=== PATIENT | female | born 1955 | race Caucasian/White ===

== ENCOUNTER 2022-04-13 02:31 | Inpatient (IN) | payer OTHER ==
[~2022-04-13] VITALS: Ht 160 cm; Wt 77.1 kg
[2022-04-13 03:04] VITALS: BP_SYST 171
[2022-04-13] MEDS ORDERED: MORPHINE 4 MG INJ. 4 MG/ML VIAL IVP ONE (05:00)
[2022-04-13] MEDS ORDERED: PROCHLORPERAZINE EDISYLATE 10 MG/2 ML VIAL IVP ONE (05:00)
--- NOTE | 2022-04-13 05:00 | NUR ---
pt BIB BLS from home c/o mechanical fall, right sided hip pain. Denies CP, SOB, No LOC, No head trauma
--- NOTE | 2022-04-13 05:30 | NUR ---
at bedside for MSE
--- NOTE | 2022-04-13 05:41 | NUR ---
# 20 gauge angiocath placed to LAC. Use of asceptic technique. Opsite placed over site. Blood return noted. Blood for lab drawn from site. Flushed with 10 cc of normal saline. No evidence of infiltration noted. Patient tolerated well.
[2022-04-13] MEDS ORDERED: ONDANSETRON HCL 4 MG/2 ML VIAL IVP PRN (06:30)
[2022-04-13] MEDS ORDERED: MUPIROCIN 2% TOPICAL OINTMENT 22 GM NS PRN (06:30)
[2022-04-13] MEDS ORDERED: MAGNESIUM SULFATE 50 ML IV PRN (06:30)
[2022-04-13] MEDS ORDERED: POTASSIUM CHLORIDE 20 MEQ TAB.PRT.SR PO PRN (06:30)
[2022-04-13] MEDS ORDERED: DOCUSATE SODIUM 100 MG CAPSULE PO PRN (06:30)
[2022-04-13] MEDS ORDERED: ACETAMINOPHEN 325 MG TABLET PO PRN (06:30)
[2022-04-13 06:42] LABS: BASOPHILS % (AUTO) 0.2 % (0.0-2.0); HEMATOCRIT 43.8 % (36-48); HEMOGLOBIN 14.5 g/dL (12.0-16.0); LYMPHOCYTES # (AUTO) 0.7 K/uL (1.0-5.5); LYMPHOCYTES % (AUTO) 4.1 % (20.5-51.5); MEAN CORPUSCULAR HEMOGLOBIN 31 pg (27-31); MEAN CORPUSCULAR HGB CONC 33 % (32-36); MEAN CORPUSCULAR VOLUME 93 fL (79.0-98.0); MONOCYTES % (AUTO) 5.8 % (1.7-9.3); NEUTROPHILS # (AUTO) 15.4 K/uL (1.8-7.7); NEUTROPHILS % (AUTO) 89.9 % (40.0-70.0); PLATELET COUNT (AUTO) 232 K/uL (130-430); RED BLOOD CELL COUNT(AUTO) 4.73 MIL/uL (4.2-6.2); RED CELL DISTRIBUTION WIDTH 14.3 % (9.0-15.0); WHITE BLOOD COUNT (AUTO) 17.1 K/uL (4.8-10.8)
[2022-04-13 07:19] LABS: CREATININE 0.73 mg/dL (0.55-1.30)
--- NOTE | 2022-04-13 07:30 | NUR ---
ASSUMED PATIENT CARE AAOX4 ON BOTTOM FINISHER, C/O RIGHT SIDED DISCOMFORT, WILL CONTINUE TO MONITOR.
[2022-04-13] MEDS ORDERED: DEXAMETHASONE SOD PHOSPHATE 4 MG/ML VIAL IVP ONE (08:30)
--- NOTE | 2022-04-13 08:57 | NUR ---
SPOKE TO AND REPOSITIONNED PATIENT IN BED.
--- NOTE | 2022-04-13 09:48 | NUR ---
X-RAY IN PROGRESS.
[2022-04-13] MEDS: NACL 0.9% 1,000 ML IV SCH ×2 (10:22→22:24)
[2022-04-13] MEDS: MORPHINE 2 MG/ML INJ. SYRINGE IVP PRN ×4 (10:22→23:55)
--- NOTE | 2022-04-13 11:04 | NUR ---
PURE WECK IN PLACE TO SUCTION, WILL CONTINUE TO MONITOR.
[2022-04-13] MEDS ORDERED: CEFAZOLIN 1 GM IVPB PREMIX 50 ML IV ONE (11:30)
[2022-04-13 12:13] LABS: ANION GAP 15 (5-15); CALCIUM 9.3 mg/dL (8.4-11.0); CHLORIDE 106 mmol/L (98-107); CREATININE 0.79 mg/dL (0.55-1.30); GLUCOSE 134 mg/dL (70-99); UREA NITROGEN, BLOOD 9 mg/dL (8-21)
[2022-04-13 12:17] LABS: ALANINE AMINOTRANSFERASE 32 U/L (12-78); ALBUMIN 3.7 g/dL (3.4-4.8); ASPARTATE AMINOTRANSFERASE 87 U/L (10-37); C-REACTIVE PROTEIN QUANT 3.7 mg/dL (0-0.5); TOTAL BILIRUBIN 0.7 mg/dL (0.0-1.0)
[2022-04-13 12:21] LABS: GFR AFRICAN AMERICAN 93 mL/min (>90)
--- NOTE | 2022-04-13 14:30 | NUR ---
CALL PLACE TO DR MONTGOMERY FOR D-DIMER 5000
--- NOTE | 2022-04-13 14:36 | NUR ---
CALL TO DR MONTGOMERY MADE AWARE OF CONSULT.
--- NOTE | 2022-04-13 14:50 | NUR ---
Nika vidales in [facility] - 04/13/22 at 1503 by SDMTHK NPO UNTIL MIDNIGHT- SURGERY RESCHEDULED
--- NOTE | 2022-04-13 15:00 | NUR ---
PATIENT IS EATING
--- NOTE | 2022-04-13 15:03 | NUR ---
NPO AFTER MIDNIGHT PER OR
--- NOTE | 2022-04-13 15:03 | NUR ---
REPORT GIVEN TO
--- NOTE | 2022-04-13 15:34 | NUR ---
Patient will be admitted to care of DR FRANCO. Admitted to M/S unit. Will go to room 121 A. Belongings list completed. Complete and up to date summary report printed. SBAR report to be given at bedside with opportunity for questions.
--- NOTE | 2022-04-13 15:35 | NUR ---
REPORT GIVEN TO LEONEL SINGH
[2022-04-13 17:10] VITALS: BP_SYST 150
--- NOTE | 2022-04-13 19:15 | NUR ---
OPENING NOTE REPORT RECEIVED FROM DAYSHIFT NURSE. PATIENT RECEIVED LYING IN BED, AWAKE, NO S/S OF ACUTE DISTRESS. BREATHING EVEN AND UNLABORED, HOB RAISED, NASAL CANULA ATTACHED PROPERLY, ON 2L OF OXYGEN. IVF INFUSING WELL, IV SITE PATENT, NO SIGNS OF INFILTRATION OR INFECTION NOTED. CALL LIGHT WITH PATIENT. BED ALARM ON. BED IS LOCKED AND AT LOWEST POSITION. WILL CONTINUE TO MONITOR.
[2022-04-13 20:00] VITALS: BP_SYST 148
[2022-04-13] MEDS: CEFAZOLIN 1 GM IVPB PREMIX 50 ML IV SCH (22:25)
--- NOTE | 2022-04-13 23:00 | NUR ---
ROUND PATIENT IN BED, RESTING. NO SIGNS OF DISCOMFORT. CHEST RISE AND FALL EVEN BILATERALLY. ALL NEEDS MET. WILL MONITOR.
[2022-04-14 00:41] VITALS: BP_SYST 163
--- NOTE | 2022-04-14 04:40 | NUR ---
CALLED MD/RETENTION PATIENT HAS YET TO VOID THROUGHOUT SHIFT. BLADDER SCAN DONE, >800ML DETECTED. MD MADE AWARE. ORDERS GIVEN. WILL CARRY OUT.
[2022-04-14] MEDS: MORPHINE 2 MG/ML INJ. SYRINGE IVP PRN (04:48)
[2022-04-14] MEDS: CEFAZOLIN 1 GM IVPB PREMIX 50 ML IV SCH (05:36)
[2022-04-14 06:39] LABS: BASOPHILS % (AUTO) 0.1 % (0.0-2.0); HEMATOCRIT 40.5 % (36-48); HEMOGLOBIN 13.8 g/dL (12.0-16.0); LYMPHOCYTES # (AUTO) 1.3 K/uL (1.0-5.5); LYMPHOCYTES % (AUTO) 7.6 % (20.5-51.5); MEAN CORPUSCULAR HEMOGLOBIN 31 pg (27-31); MEAN CORPUSCULAR HGB CONC 34 % (32-36); MEAN CORPUSCULAR VOLUME 92 fL (79.0-98.0); MONOCYTES # (AUTO) 1.5 K/uL (0.0-1.0); MONOCYTES % (AUTO) 8.8 % (1.7-9.3); NEUTROPHILS # (AUTO) 13.8 K/uL (1.8-7.7); NEUTROPHILS % (AUTO) 83.5 % (40.0-70.0); PLATELET COUNT (AUTO) 234 K/uL (130-430); RED BLOOD CELL COUNT(AUTO) 4.39 MIL/uL (4.2-6.2); RED CELL DISTRIBUTION WIDTH 14.2 % (9.0-15.0); WHITE BLOOD COUNT (AUTO) 16.5 K/uL (4.8-10.8)
--- NOTE | 2022-04-14 06:41 | NUR ---
CLOSING NOTE PATIENT IN BED RESTING. NO S/S OF ACUTE DISTRESS. BREATHING EVEN AND UNLABORED. HOB RAISED. NASAL CANULA ATTACHED PROPERLY. IVF INFUSING WELL. IV SITE PATENT, NO SIGNS OF INFILTRATION OR INFECTION NOTED. MARTINEZ ATTACHED, SECURED, AND DRAINING BY GRAVITY. ALL NEEDS MET THROUGHOUT SHIFT. FALL, SAFETY PRECAUTIONS MAINTAINED THROUGHOUT SHIFT. WILL CONTINUE TO MONITOR UNTIL PATIENT CARE IS ENDORSED TO ONCOMING DAYSHIFT NURSE.
[2022-04-14 07:41] LABS: CALCIUM 8.6 mg/dL (8.4-11.0); CREATININE 0.58 mg/dL (0.55-1.30)
[2022-04-14 07:53] VITALS: BP_SYST 160
[2022-04-14 08:14] LABS: BILIRUBIN,URINE NEGATIVE (NEGATIVE); BLOOD, URINE NEGATIVE (NEGATIVE); CLARITY/URINE CLEAR (CLEAR); COLOR,URINE YELLOW (YELLOW); GLUCOSE,URINE NEGATIVE (NEGATIVE); KETONES,URINE 1+ (NEGATIVE); LEUKOCYTE ESTERASE ,URINE NEGATIVE (NEGATIVE); NITRITE, URINE NEGATIVE (NEGATIVE); PROTEIN URINE 1+ (NEGATIVE); UROBILINOGEN,URINE 0.2 (0.2-1.0)
--- NOTE | 2022-04-14 08:59 | NUR ---
Patint AAox4, no acute distress noted. Patient leftto surgery at this time.
[2022-04-14 09:26] LABS: BACTERIA,URINE RARE /HPF (None Seen); MUCUS,URINE 1+ /LPF (None Seen); WBC,URINE 0-3 /HPF (0-3)
[2022-04-14] MEDS ORDERED: METOCLOPRAMIDE HCL 10 MG/2 ML VIAL IVP PRN ×2 (09:45→11:15)
[2022-04-14] MEDS ORDERED: ONDANSETRON HCL 4 MG/2 ML VIAL IVP PRN ×2 (09:45→11:45)
[2022-04-14] MEDS ORDERED: fentaNYL CITRATE/PF 100 MCG/2 ML AMP IVP PRN ×2 (09:45)
[2022-04-14] MEDS ORDERED: LORATADINE 10 MG TABLET PO PRN (11:00)
[2022-04-14] MEDS ORDERED: traMADol HCL HCL 50 MG TABLET (ULTRAM) PO PRN (11:00)
[2022-04-14] MEDS ORDERED: oxyCODONE HCL 5 MG TABLET PO PRN (11:00)
[2022-04-14] MEDS ORDERED: HYDROmorphone 1 MG/ML INJ. CARTRIDGE IVP PRN ×2 (11:00)
[2022-04-14] MEDS ORDERED: NALOXONE HCL 0.4 MG/ML AMP (NARCAN) IVP PRN ×3 (11:15)
[2022-04-14] MEDS ORDERED: BISACODYL 10 MG/SUPPOSITORY RC PRN (11:15)
[2022-04-14] MEDS ORDERED: KETOROLAC TROMETHAMINE 10 MG TABLET (TORADOL) PO SCH (14:00)
--- NOTE | 2022-04-14 14:01 | NUR ---
several attrempts to reach family member regarding patient medications, phone rang andno one picked up. Will continue to try to get in touchwith family member. Patient is AAOx4, resting in bed and no acute distress noted at this time.
[2022-04-14] MEDS: HYDROmorphone 1 MG/ML INJ. CARTRIDGE IVP PRN ×2 (14:28→20:20)
[2022-04-14] MEDS: ceFAZolin SODIUM 2 GM in D5W 50 ML IV SCH ×2 (14:57→22:03)
[2022-04-14 16:00] VITALS: BP_SYST 177
[2022-04-14] MEDS ORDERED: LR 1,000 ML IV.SOLN IV ONE (18:50)
[2022-04-14] MEDS ORDERED: NS IRRIG SOLN 1000 ML IR ONE (18:50)
[2022-04-14] MEDS ORDERED: BUPIVACAINE /PF 0.5% 30 ML VIAL INJ ONE (18:50)
[2022-04-14] MEDS ORDERED: PROPOFOL 200MG/ 20ML VIAL (DIPRIVAN) IV ONE (18:50)
[2022-04-14] MEDS ORDERED: NS 1000 ML IV.SOLN IV ONE (18:50)
[2022-04-14] MEDS ORDERED: TRANEXAMIC ACID 1,000 MG/10 ML VIAL IV ONE (18:50)
[2022-04-14 20:00] VITALS: BP_SYST 158
[2022-04-14] MEDS ORDERED: ACETAMINOPHEN 500 MG TABLET ONE (20:13)
[2022-04-14] MEDS: SENNOSIDES/DOCUSATE SODIUM 1 TAB TABLET(SENOKOT-S) PO SCH (20:18)
[2022-04-14] MEDS: ACETAMINOPHEN 500 MG TABLET PO SCH (20:19)
[2022-04-15] VITALS: BP_SYST 147
--- NOTE | 2022-04-15 | NUR ---
ROUNDS PATIENT STABLE, RESTING. WILL MONITOR.
[2022-04-15] MEDS: NACL 0.9% 1,000 ML IV SCH ×3 (01:45→20:37)
[2022-04-15] MEDS: ACETAMINOPHEN 500 MG TABLET PO SCH ×3 (05:56→23:12)
[2022-04-15] MEDS: ceFAZolin SODIUM 2 GM in D5W 50 ML IV SCH (05:56)
[2022-04-15] MEDS: HYDROmorphone 1 MG/ML INJ. CARTRIDGE IVP PRN ×3 (06:27→20:37)
--- NOTE | 2022-04-15 08:36 | NUR ---
Attempted to reach Roger Correia regarding patient's blood pressure. As per Dr. Mata message will be passing across and awaiting for call back to know the next step. Will continue to monitor.
[2022-04-15 08:39] VITALS: BP_SYST 198
[2022-04-15] MEDS: SENNOSIDES/DOCUSATE SODIUM 1 TAB TABLET(SENOKOT-S) PO SCH ×2 (09:00→20:37)
[2022-04-15] MEDS ORDERED: ASPIRIN 81 MG TAB.CHEW PO SCH (09:00)
[2022-04-15 10:00] LABS: CALCIUM 8.7 mg/dL (8.4-11.0); CREATININE 0.7 mg/dL (0.55-1.30)
[2022-04-15 10:59] LABS: BASOPHILS % (AUTO) 0.1 % (0.0-2.0); EOSINOPHILS % (AUTO) 0.2 % (0.0-4.0); HEMATOCRIT 39.6 % (36-48); HEMOGLOBIN 13.2 g/dL (12.0-16.0); LYMPHOCYTES # (AUTO) 1.5 K/uL (1.0-5.5); LYMPHOCYTES % (AUTO) 12.8 % (20.5-51.5); MEAN CORPUSCULAR HEMOGLOBIN 31 pg (27-31); MEAN CORPUSCULAR HGB CONC 33 % (32-36); MONOCYTES # (AUTO) 1.2 K/uL (0.0-1.0); MONOCYTES % (AUTO) 10.6 % (1.7-9.3); NEUTROPHILS % (AUTO) 76.3 % (40.0-70.0); PLATELET COUNT (AUTO) 179 K/uL (130-430); RED BLOOD CELL COUNT(AUTO) 4.22 MIL/uL (4.2-6.2); RED CELL DISTRIBUTION WIDTH 14.4 % (9.0-15.0); WHITE BLOOD COUNT (AUTO) 11.7 K/uL (4.8-10.8)
[2022-04-15] MEDS ORDERED: CELECOXIB 200 MG CAPSULE PO SCH (11:00)
[2022-04-15 11:01] LABS: MEAN CORPUSCULAR VOLUME 94 fL (79.0-98.0)
[2022-04-15] MEDS: ENOXAPARIN SODIUM 40 MG/0.4 ML SYRINGE SUBCUT SCH (11:54)
--- NOTE | 2022-04-15 14:46 | NUR ---
Patient offered med and refused. Med opened and wasted.
--- NOTE | 2022-04-15 19:25 | NUR ---
RECEIVED LYING IN BED NO DISTRESS NOTED DENIES PAIN. AAOX3, HOWEVER IS STATING "WHEN CAN I BAKE, IT TIME FOR ME TO BACK OUT THERE" "DON'T BE MOVING ME, I'M NOT SUPPOSE TO BE MOVING. IV SITE TO LT ARM SITE CDI. LUNGS CLEAR O2 SAT 95% ON 3L. F/C DRAINING CLEAR YELLOW URINE. BLE COOL, WEAK PULSES, +MOBILITY, +SENSATION, BRISK CAP REFILL. ATTEMPTED TO DO ROM TO BUE AND LLE PT REFUSED, STATED "YOU'RE NOT SUPPOSE TO BE MOVING ME LIKE THAT" I EXPLAINED THE IMPORTANCE OF ROM AFTER SURGERY AND PROLONGED TIME BEING IN BED. SHE CONTINUES TO REFUSE. C/O OF LEG PAIN UNABLE TO RATE HER PAIN. Addendum: 04/15/22 at 2006 by [employer], FRANCISCO SINGH WILL BE INSTRUCTING PT ON HOW TO USE THE INCENTIVE SPIROMETER AND WILL BE APPLYING THE SCDs
[2022-04-15 20:20] VITALS: BP_SYST 170
--- NOTE | 2022-04-15 20:51 | NUR ---
DRSG TO RT HIP CDI. NOW PT RATING LEG PAIN 10/10 DILAUDID 0.4MG GIVEN. SCDs APPLIED, INSTRUCTED PT ON HOW TO USE THE INCENTIVE SPIROMETER CAN BRING IT UP TO 1500MLS. WILL CONTINUE WORKING WITH HER ON USE OF IS AND ENCOURAGE ROM.
--- NOTE | 2022-04-15 22:52 | NUR ---
PAIN LEVEL IS 0/10. AFTER APPLIED SCDs RLE IS NOW WARM.
[2022-04-16 00:32] VITALS: BP_SYST 169
[2022-04-16] MEDS: HYDROmorphone 1 MG/ML INJ. CARTRIDGE IVP PRN ×2 (04:23→08:55)
[2022-04-16] MEDS: ACETAMINOPHEN 500 MG TABLET PO SCH (05:57)
[2022-04-16 07:01] LABS: BASOPHILS % (AUTO) 0.2 % (0.0-2.0); EOSINOPHILS # (AUTO) 0.1 K/uL (0.0-0.4); EOSINOPHILS % (AUTO) 0.5 % (0.0-4.0); HEMATOCRIT 34.5 % (36-48); HEMOGLOBIN 11.7 g/dL (12.0-16.0); LYMPHOCYTES # (AUTO) 1.4 K/uL (1.0-5.5); LYMPHOCYTES % (AUTO) 11.3 % (20.5-51.5); MEAN CORPUSCULAR HEMOGLOBIN 31 pg (27-31); MEAN CORPUSCULAR HGB CONC 34 % (32-36); MEAN CORPUSCULAR VOLUME 92 fL (79.0-98.0); MONOCYTES # (AUTO) 1.5 K/uL (0.0-1.0); MONOCYTES % (AUTO) 12.4 % (1.7-9.3); NEUTROPHILS # (AUTO) 9.1 K/uL (1.8-7.7); NEUTROPHILS % (AUTO) 75.6 % (40.0-70.0); PLATELET COUNT (AUTO) 202 K/uL (130-430); RED BLOOD CELL COUNT(AUTO) 3.75 MIL/uL (4.2-6.2); RED CELL DISTRIBUTION WIDTH 13.6 % (9.0-15.0); WHITE BLOOD COUNT (AUTO) 12.1 K/uL (4.8-10.8)
[2022-04-16 07:34] LABS: ALBUMIN 2.4 g/dL (3.4-4.8); CALCIUM 7.6 mg/dL (8.4-11.0); CREATININE 0.65 mg/dL (0.55-1.30); TOTAL BILIRUBIN 0.7 mg/dL (0.0-1.0)
[2022-04-16 08:09] VITALS: BP_SYST 171
[2022-04-16] MEDS ORDERED: TRAM50TA2 PO (08:18)
[2022-04-16] MEDS ORDERED: APIX2.5T PO (08:24)
[2022-04-16] MEDS: SENNOSIDES/DOCUSATE SODIUM 1 TAB TABLET(SENOKOT-S) PO SCH (08:50)
[2022-04-16] MEDS: NACL 0.9% 1,000 ML IV SCH (09:00)
[2022-04-16] MEDS ORDERED: LOSARTAN POTASSIUM 50 MG TABLET (COZAAR) PO SCH (09:00)
[2022-04-16 12:00] VITALS: BP_SYST 164
[2022-04-16] MEDS: ENOXAPARIN SODIUM 40 MG/0.4 ML SYRINGE SUBCUT SCH (12:36)
--- NOTE | 2022-04-16 14:00 | NUR ---
Discharge Planning: [facility] faxed [facility] F# [phone] P#[phone] DC order for home health and FWW. [facility] faxed pt referral to [facility] [phone] and [facility] [phone]. [facility] to follow up Addendum: 04/16/22 at 1645 by Cherie Holder DP [facility] [phone] will deliver btw 5:00pm and 8:00pm and [facility] [phone] will accept pt.
[2022-04-16 16:30] VITALS: BP_SYST 154
--- NOTE | 2022-04-16 17:10 | NUR ---
PAtient AAOx4, no acute distress noted at this time. Patient has an order to be discharge today. Patient and family member was educated regarding the disease process and the risks factor. Patient and family member expressed understanding of the instructions. Walker delivered at bed side, patient's declined bed side commode offer. Prescription sent to the pharmacy, patient and family member made aware.
--- NOTE | 2022-04-16 18:53 | NUR ---
Patient's hammer catheter has been removed.
== END 2022-04-16 19:06 | disposition home health service (06) | DRG 482 ==
LOC: SED 02:31 → SMU 06:23
PROVIDERS: ADMIT Family Medicine; ATTEND Family Medicine
PROC: 0QS606Z Reposition Right Upper Femur with Intramedullary Internal Fixation Device, Open Approach (ICD-10-PCS; principal; 2022-04-13)
DX: S72.144A Nondisplaced intertrochanteric fracture of right femur, initial encounter for closed fracture (principal); W18.39XA Other fall on same level, initial encounter; F29 Unspecified psychosis not due to a substance or known physiological condition; Z20.822 Contact with and (suspected) exposure to COVID-19; R09.02 Hypoxemia; I10 Essential (primary) hypertension; F17.200 Nicotine dependence, unspecified, uncomplicated; F03.90 Unspecified dementia, unspecified severity, without behavioral disturbance, psychotic disturbance, mood disturbance, and anxiety; J44.9 Chronic obstructive pulmonary disease, unspecified; Z79.1 Long term (current) use of non-steroidal anti-inflammatories (NSAID); Z79.899 Other long term (current) drug therapy; Z88.6 Allergy status to analgesic agent; Y93.89 Activity, other specified; Y92.89 Other specified places as the place of occurrence of the external cause; Y99.8 Other external cause status; Z90.710 Acquired absence of both cervix and uterus
CPT/HCPCS: 36415; 71045; 72170-TC; 73502; 73552; 76000; 80048; 80053; 81000; 83605; 83735; 83880; 85025; 85379; 85610-TC; 85730-TC; 86140; 86886; 86900; 86901; 87040; 87081; 93005; 96374; 96375; 97163-GP; 99285; J0690; J0780; J1100; J1170; J1650; J2270; J2704; J3490; J7030; J7060; J7120